=== PATIENT | male | born 1945 | race Caucasian/White ===

== ENCOUNTER 2019-07-11 08:47 | Emergency (ER) | payer OTHER ==
[~2019-07-11] VITALS: Ht 165.1 cm; Wt 93.0 kg
[2019-07-11 08:54] VITALS: Ht 165.1 cm; Wt 93.0 kg
[2019-07-11 09:42] LABS: CALCIUM 8.8 mg/dL (8.5-10.1); CARBON DIOXIDE 27.2 mmol/L (21-32); CHLORIDE SERUM 106 mmol/L (98-107); CREATININE SERUM 0.8 mg/dL (0.7-1.3); GLUCOSE SERUM 110 mg/dL (74-106); POTASSIUM SERUM 4.2 mmol/L (3.5-5.1); SODIUM SERUM 142 mmol/L (136-145)
[2019-07-11 09:46] LABS: ALBUMIN 3.6 g/dL (3.4-5.0); ALKALINE PHOSPHATASE 161 U/L (46-116); ALT/SGPT 32 U/L (16-63); AST/SGOT 21 U/L (15-37); BILIRUBIN TOTAL 1.6 mg/dL (0.20-1.00); TOTAL PROTEIN, SERUM 7.3 g/dL (6.4-8.2)
[2019-07-11 10:28] LABS: BASOPHIL % 0.5 % (0-2); PLATELET COUNT 151 x10^3mcL (130-400); RED CELL DISTRIBUTION WIDTH 13.6 % (11.5-14.5)
[2019-07-11 11:44] VITALS: BP 112/91
== END 2019-07-11 11:44 | disposition home or self-care (01) ==
LOC: ED 08:47
PROVIDERS: Emergency Medicine
DX: R53.1 Weakness (principal); R42 Dizziness and giddiness; G89.29 Other chronic pain; M54.2 Cervicalgia
CPT/HCPCS: 36415